=== PATIENT | male | born 1940 | race Caucasian/White ===

== ENCOUNTER → 2018-06-05 | Outpatient (CLI) | payer MEDICARE ==
[~2018-06-05] MED LIST: ASPIRIN 81M81 MG/TA2 PO; BENICAR; BENICAR 20MG TA20 MG PO; FISH OIL500 MG PO; LEVOXYL; LEVOXYL0.088 MG PO; LEVOXYL0.112 MG PO; LORTAB 5/500 501 TAB PO; NITROQUICK0.4 MG SL; NO HOME MEDICATIONS; PRILOSEC40 MG PO; ZOCOR; ZOCOR 20MG20 MG PO
== END ==
LOC: COL.RAD 06-03 09:30
DX: R13.12 Dysphagia, oropharyngeal phase (principal)

== ENCOUNTER 2018-11-03 10:27 | Day surgery (SDC) | payer MEDICARE, OTHER ==
[~2018-11-03] VITALS: Ht 165.1 cm; Wt 54.4 kg
[2018-11-03] VITALS (9 sets, daily range): BP systolic 119–146; BP diastolic 56–76; PULSE 58–77; TEMP 97.7
[2018-11-03] MEDS ORDERED: NORVASC2.5 MG PO (11:35)
[2018-11-03] MEDS ORDERED: BENICAR40 MG PO (11:35)
[2018-11-03] MEDS ORDERED: NAMENDA5 MG PO (11:36)
[2018-11-03] MEDS ORDERED: ARICEPT 5MG PO (11:36)
[2018-11-03] MEDS ORDERED: PRILOTC PO (11:37)
[2018-11-03] MEDS ORDERED: NAMENDA 10MG TA10 MG PO (11:38)
--- NOTE | 2018-11-03 15:10 | NUR ---
Patient returns to room 2 per cart and arouses to verbal stimuli. Bandaids x3 on abdomen clean and dry with warm blanket on abdomen. IV fluids infusing and siderails up x2. Spouse in room. Call light in reach. Given sips of water and allowed to rest. Denies pain or nausea.
[2018-11-03] MEDS ORDERED: NORCO 325 MG-51 TAB PO (15:17)
--- NOTE | 2018-11-03 15:25 | NUR ---
Room air sats 97%. Taking ice chips and sips of water. Spouse in room and patient states that he is sleepy. Encouraged patient to sleep.
[2018-11-03] MEDS ORDERED: MOTRIN 600600 MG/TAB (15:27)
--- NOTE | 2018-11-03 15:40 | NUR ---
Given spouse script for [employer] to be filled prior to discharge. Patient is resting and call light in reach.
--- NOTE | 2018-11-03 15:55 | NUR ---
Continues to rest with eyes closed and offers no complaints of pain or nausea.
--- NOTE | 2018-11-03 16:10 | NUR ---
Continues to rest with eyes closed when not disturbed. IV fluids infusing.
--- NOTE | 2018-11-03 16:40 | NUR ---
Resting and sipping on water. States that his abdomen is sore. Eating ice cream.
--- NOTE | 2018-11-03 16:53 | NUR ---
Medicated with Downs 5mg one tab for pain rating 4/10. Bandaids x3 dry on abdomen.
--- NOTE | 2018-11-03 17:10 | NUR ---
Tolerated ice cream and [place]. States that the discomfort is decreasing. Spouse has returned with [facility] script.
--- NOTE | 2018-11-03 17:20 | NUR ---
Patient ambulatory to the bathroom and gait is steady. Able to void and returns to room. IV discontinued and patient is dressing self.
--- NOTE | 2018-11-03 17:35 | NUR ---
Patient dismissed to home driven by spouse with dismissal instructions in hand and taken to the visitor entrance per wheelchair and assisted into vehicle by this RN.
== END 2018-11-03 17:35 | disposition home or self-care (01) ==
LOC: SDCO 10:27
DX: K40.91 Unilateral inguinal hernia, without obstruction or gangrene, recurrent (principal); K41.90 Unilateral femoral hernia, without obstruction or gangrene, not specified as recurrent; I10 Essential (primary) hypertension; K20.9 Esophagitis, unspecified; Z85.850 Personal history of malignant neoplasm of thyroid; Z92.3 Personal history of irradiation; E78.00 Pure hypercholesterolemia, unspecified; F03.90 Unspecified dementia, unspecified severity, without behavioral disturbance, psychotic disturbance, mood disturbance, and anxiety; R13.10 Dysphagia, unspecified; Z79.899 Other long term (current) drug therapy; Z79.82 Long term (current) use of aspirin; Z88.2 Allergy status to sulfonamides; Z82.49 Family history of ischemic heart disease and other diseases of the circulatory system; E89.0 Postprocedural hypothyroidism
CPT/HCPCS: C1781; J0690; J1100; J1885; J2405; J2704; J3010; J7120

== ENCOUNTER → 2019-01-22 | Outpatient (CLI) | payer MEDICARE, OTHER ==
[~2019-01-22] MED LIST changes: +ARICEPT 5MG PO; +BENICAR40 MG PO; +MOTRIN 600600 MG/TAB; +NAMENDA 10MG TA10 MG PO; +NAMENDA5 MG PO; +NORCO 325 MG-51 TAB PO; +NORVASC2.5 MG PO; +PRILOTC PO
== END ==
LOC: COL.LAB 12:15
DX: S01.01XA Laceration without foreign body of scalp, initial encounter (principal)

== ENCOUNTER 2019-12-07 10:38 | Day surgery (SDC) | payer MEDICARE, OTHER ==
[~2019-12-07] VITALS: Ht 165.1 cm; Wt 49.9 kg
[~2019-12-07 10:38] MED LIST changes: +CILOXAN 5 ML5 ML OP
[2019-12-07 11:03] VITALS: BP 186/74; PULSE 56; TEMP 97.8
[2019-12-07 11:38] LABS: ALBUMIN 4.3 gm/dL (3.5-5.0); CALCIUM 9.2 mg/dL (8.4-10.2); CREATININE, serum 0.58 (0.66-1.25)
[2019-12-07] MEDS ORDERED: NORCOELIX PO (13:13)
[2019-12-07 13:15] VITALS: BP 92/53; PULSE 49; TEMP 97
--- NOTE | 2019-12-07 13:15 | NUR ---
The patient arrived back to [place] [facility] from the operating room at this time. The patient appears very drowsy but does arouse to his name. The patient's dressing to his PEG tube appears clean, dry and intact. The patient's post operative vital signs were started at this time. The patient's is at his bedside at this time. Call light is within reach. Will continue to monitor the patient.
[2019-12-07 13:30] VITALS: BP 90/44; PULSE 46
--- NOTE | 2019-12-07 13:30 | NUR ---
The patient appears to be resting quietly on the cart with his eyes closed at this time. Respiraitons even and unlabored. Dietary and [facility] is present at the patient's bedside to speak with regaridng PEG tube use and supplies. Will continue to monitor the patient.
[2019-12-07 13:45] VITALS: BP 122/63; PULSE 48
--- NOTE | 2019-12-07 13:45 | NUR ---
The patient appears more alert at this time and was given some water to try. The patient's vital signs appear stable. Call light remains within reach. continues to be at his bedside. Will continue to monitor the patient.
[2019-12-07 14:00] VITALS: BP 145/71; PULSE 48
--- NOTE | 2019-12-07 14:00 | NUR ---
The patient appears to be tolerating the water well. PEG tube teaching was completed with the patient and his at this time. They both verbalized understanding and has no questions for the nurse at this time.
--- NOTE | 2019-12-07 14:14 | NUR ---
First Leveler received a consult for the patient due to peg tube. TERESA and Dietitian, Rachele met with the patient's , Rosa to discuss DME and Medicare.gov [employer] TESTER choices. [facility] was chosed for supplies and [facility] [facility] [facility] [employer] [facility] was chosen for HHS. Referrals faxed. Kathe from [facility] reports they can accept the patient. The patient's PCP to provide HH orders. There are no additional needs at this time.
--- NOTE | 2019-12-07 14:15 | NUR ---
The patient ambulated to the bathroom with the stand by assistance of one nurse and appeared to tolerate the activity well. The patient voided without difficulty and voices a desire to be discharged home. The nurse instructed the patient to get dressed and notify the staff when he is ready to review his discharge paperwork.
--- NOTE | 2019-12-07 14:30 | NUR ---
Discharge instructions were reviewed with the patient and his at this time. They both verbalized understanding and have no questions for the nurse at this time. The patient's IV to his right wrist was removed and a pressure dressing was applied to the site. The patient is dressed and ready to be escorted out.
--- NOTE | 2019-12-07 14:45 | NUR ---
The patient was escorted out via wheelchair to a private vehicle by CONNOR Nagy. The patient's belongings and discharge paperwork were sent with him. The patient was also sent with supplies for PEG tube including 60 ml syringes, 240 mL measuring cups and drain sponges. The patient's is present to drive him home.
== END 2019-12-07 15:39 | disposition home or self-care (01) ==
LOC: SDCO
PROVIDERS: Surgery
DX: K21.9 Gastro-esophageal reflux disease without esophagitis (principal); Z79.82 Long term (current) use of aspirin; I10 Essential (primary) hypertension; E78.00 Pure hypercholesterolemia, unspecified; E03.9 Hypothyroidism, unspecified; Z92.3 Personal history of irradiation; Z88.2 Allergy status to sulfonamides; Z87.891 Personal history of nicotine dependence; F41.9 Anxiety disorder, unspecified; G30.9 Alzheimer's disease, unspecified; F02.80 Dementia in other diseases classified elsewhere, unspecified severity, without behavioral disturbance, psychotic disturbance, mood disturbance, and anxiety; Z20.828 Contact with and (suspected) exposure to other viral communicable diseases; Z88.1 Allergy status to other antibiotic agents
CPT/HCPCS: J2405; J2704; J3010; J7120

== ENCOUNTER 2020-06-13 13:34 | Emergency (ER) | payer MEDICARE, OTHER ==
[~2020-06-13] VITALS: Ht 165.1 cm; Wt 56.8 kg
[~2020-06-13 13:34] MED LIST changes: +NORCOELIX PO
[2020-06-13 13:48] VITALS: TEMP 97.5
[2020-06-13 14:35] VITALS: BP 135/68; PULSE 66
== END 2020-06-13 14:36 | disposition home or self-care (01) ==
LOC: COL.ER 13:34
DX: K94.23 Gastrostomy malfunction (principal); Z79.82 Long term (current) use of aspirin
CPT/HCPCS: 32167

== ENCOUNTER 2021-07-27 13:22 | Outpatient (CLI) | payer MEDICARE, OTHER ==
--- NOTE | 2021-07-27 14:00 | NUR ---
TO ROOM 5 AMBULATORY ACCOMPANIED BY SPOUSE FOR G-TUBE EXCHANGE. CONSENT SIGNED. ALERT AND ORIENTED TO ROOM.
--- NOTE | 2021-07-27 14:20 | NUR ---
DR. HORTON IN THE ROOM AND G-TUBE EXCHANGE DONE. PATIENT TOLERATES THE PROCEDURE WELL.
--- NOTE | 2021-07-27 14:27 | NUR ---
PROCEDURE COMPLETED AND PATIENT MAY BE DISCHARGED WITH SAME DIET AND MEDICATIONS.
--- NOTE | 2021-07-27 14:32 | NUR ---
PATIENT ESCORTED BY SPOUSE AND DISMISSED TO HOME.
== END 2021-07-27 14:32 | disposition home or self-care (01) ==
LOC: SDCO 13:22 → EDSTATUS 13:22 → SDCO 14:32
DX: Z43.1 Encounter for attention to gastrostomy (principal); Z92.21 Personal history of antineoplastic chemotherapy; Z92.3 Personal history of irradiation; R13.10 Dysphagia, unspecified
CPT/HCPCS: 31007

== ENCOUNTER 2021-08-26 11:37 | Emergency (ER) | payer MEDICARE, OTHER ==
[~2021-08-26] VITALS: Ht 165.1 cm; Wt 57.3 kg
[2021-08-26 11:45] VITALS: BP 152/80; TEMP 98.5
[2021-08-26 12:52] VITALS: PULSE 67
== END 2021-08-26 12:54 | disposition home or self-care (01) ==
LOC: COL.ER 11:37
DX: T85.528A Displacement of other gastrointestinal prosthetic devices, implants and grafts, initial encounter (principal); Z46.59 Encounter for fitting and adjustment of other gastrointestinal appliance and device

== ENCOUNTER 2022-01-18 11:27 | Inpatient (IN) | payer MEDICARE, OTHER ==
[~2022-01-18] VITALS: Ht 165.1 cm; Wt 58.7 kg
[2022-01-18 11:57] LABS: HEMATOCRIT 41.6 % (42.0-52.0); MEAN CELL VOLUME 89 fl (80.0-100.0); MEAN CORPUSCULAR HEMOGLOBIN 30 pg (27-31); MEAN CORPUSCULAR HGB CONC 34 g/dl (33.0-37.0); MEAN PLATELET VOLUME 12.4 fl (7.4-10.4); PLATELET COUNT 136 K/mm3 (130-400); RED BLOOD COUNT 4.66 M/mm3 (4.20-5.60); REDCELL DISTRIBUTION WIDTH-CV 13.1 % (11.5-14.5)
[2022-01-18 12:10] LABS: ALBUMIN 3.8 gm/dL (3.4-4.8); BILIRUBIN,TOTAL 1.3 mg/dL (0.2-1.2); CALCIUM 8.8 mg/dL (8.4-10.2); CREATININE, serum 0.9 mg/dL (0.72-1.25); POTASSIUM 4.4 mmol/L (3.5-4.5); TOTAL PROTEIN 7.2 gm/dL (6.2-8.1)
[2022-01-18 12:20] LABS: BAND 2 % (0-10); NEUTROPHILS 91 % (42.0-75.2)
[2022-01-18 12:21] LABS: PLATELET ESTIMATE NORMAL (NORMAL)
[2022-01-18] MEDS ORDERED: SEROQUEL 2525 MG/TAB PO (12:41)
[2022-01-18 13:40] LABS: COLLECTION METHOD CLEAN CATCH
[2022-01-18 13:55] LABS: MUCOUS Present (NOT PRESENT); SQUAMOUS EPITHELIAL None Seen /hpf (0-10); URINE BACTERIA None Seen /hpf (NONE SEEN)
[2022-01-18 13:56] LABS: URINE APPEARANCE Clear (CLEAR/HAZY); URINE BLOOD Negative (NEGATIVE); URINE COLOR Amber (YELLOW); URINE GLUCOSE Negative (NEGATIVE); URINE KETONE TRACE (NEGATIVE); URINE NITRATE Negative (NEGATIVE); URINE PROTEIN(semi-quant) 1+ (NEGATIVE); URINE UROBILINOGEN 0.2 E.U/dL (0.2-1.0)
[2022-01-18 17:03] VITALS: BP 131/63; PULSE 71; TEMP 98.4
--- NOTE | 2022-01-18 18:58 | NUR ---
PT ADMITTED TO MEDICAL UNIT. ADMISSION INTAKE AND ASSESSMENT COMPLETED. MED REC UPDATED. PT DENIES ANY PAIN OR NEEDS AT THIS TIME. AT BEDSIDE. PEG TUBE IN PLACE. BED ALARMS IN PLACE. CALL LIGHT WITHIN REACH. WILL PASS ALONG REPORT TO ONCOMING RN.
--- NOTE | 2022-01-18 20:00 | NUR ---
Pt lying down in his bed. Looks very anxious to stand up and to leave the room. Pt is constantly reoriented that he is in the hospital. Pt makes constantly questions of why he is in the hospital and that he doesn't like where he is at. All medications administered per emar. Left FA with fluids running at this time. PEG tube in abdomen. Pt remains in clear liquid diet. Pt has difficulty remembering his own limitations. Call light is left within reach.
[2022-01-18 20:47] VITALS: BP 129/51; PULSE 73; TEMP 99.2
[2022-01-18 23:39] VITALS: BP 108/39; PULSE 63; TEMP 97.7
[2022-01-19] VITALS (7 sets, daily range): BP systolic 118–137; BP diastolic 49–92; PULSE 61–77; TEMP 96.5–99.1
[2022-01-19 06:24] LABS: BASO % 0.2 % (0.0-2.0); EOS # 0.1 K/mm3 (0.0-0.7); EOS % 1.8 % (0.0-4.0); GRAN # 4.4 K/mm3 (1.4-6.5); GRAN % 70.7 % (42.2-75.2); LYMPH % 16.3 % (20.0-51.0); MEAN CELL VOLUME 90 fl (80.0-100.0); MEAN CORPUSCULAR HEMOGLOBIN 30 pg (27-31); MEAN CORPUSCULAR HGB CONC 34 g/dl (33.0-37.0); MONO # 0.7 K/mm3 (0.1-0.6); MONO % 10.7 % (1.7-9.3); PLATELET COUNT 111 K/mm3 (130-400); RED BLOOD COUNT 3.94 M/mm3 (4.20-5.60); REDCELL DISTRIBUTION WIDTH-CV 13.1 % (11.5-14.5)
[2022-01-19 06:25] LABS: HEMATOCRIT 35.4 % (42.0-52.0); HEMOGLOBIN 11.9 g/dl (13.5-18.0)
[2022-01-19 06:40] LABS: CALCIUM 8.3 mg/dL (8.4-10.2); CREATININE, serum 0.67 mg/dL (0.72-1.25); POTASSIUM 3.7 mmol/L (3.5-4.5)
--- NOTE | 2022-01-19 10:35 | NUR ---
Initial visit; Patient wanted Plastics Plater to help him with the phone to call his and see what she is doing. Kyaw seems to not be in any pain, just somewhat focused elsewhere. Plastics Plater got his nurse to help with the phone as she wasn't having any luck getting an outside line. Plastics Plater wished Kyaw well and he thanked her for stopping. He declined Spiritual Care.
--- NOTE | 2022-01-19 16:33 | NUR ---
off unit to grab lunch. Unable to meet to discuss placement. [email or web address] list of SNF facilities provided. Patient's RN called stating that per Swathi their first choice would be [facility], second- [facility] and third-[facility].
[2022-01-19 18:15] LABS: GASTROCCULT NEGATIVE
[2022-01-19 18:16] LABS: pH GASTRIC CONTENTS 3
[2022-01-20] VITALS (7 sets, daily range): BP systolic 102–175; BP diastolic 43–91; PULSE 75–92; TEMP 97.5–102.6
--- NOTE | 2022-01-20 01:32 | NUR ---
THE PATIENT WAS IN BED WITH THE BED ALARM SET UPON ASSESSMENT. THE PATIENT HAD A FALL AT 1900 DURING SHIFT CHANGE. THE PATIENT DENIED INJURIES HOWEVER A CT OF HEAD AND C-SPINE WAS ORDERED. POST FALL ASSESSMENT AND EVENT REPORT COMPLETED. THE PATIENT WAS REMINDED TO CALL PRIOR TO GETTING UP HOWEVER WITH THE PTS HX OF ALZHEIMERS/DEMENTIA HE IS FORGETFUL. THE PATIENT DENIED PAIN OR OTHER DISCOMFORT. PERSONAL BELONGINGS AND CALL LIGHT WITHIN REACH. BED ALARM ON. WILL MONITOR.
[2022-01-20 06:50] LABS: BASO % 0.1 % (0.0-2.0); EOS # 0.1 K/mm3 (0.0-0.7); GRAN # 5.7 K/mm3 (1.4-6.5); GRAN % 79.8 % (42.2-75.2); HEMOGLOBIN 12.1 g/dl (13.5-18.0); LYMPH # 0.8 K/mm3 (1.2-3.4); LYMPH % 10.6 % (20.0-51.0); MEAN CELL VOLUME 90 fl (80.0-100.0); MEAN CORPUSCULAR HEMOGLOBIN 30 pg (27-31); MEAN CORPUSCULAR HGB CONC 34 g/dl (33.0-37.0); MEAN PLATELET VOLUME 12.5 fl (7.4-10.4); MONO # 0.6 K/mm3 (0.1-0.6); MONO % 8.2 % (1.7-9.3); PLATELET COUNT 116 K/mm3 (130-400); RED BLOOD COUNT 3.98 M/mm3 (4.20-5.60); REDCELL DISTRIBUTION WIDTH-CV 13.1 % (11.5-14.5)
[2022-01-20 06:58] LABS: HEMATOCRIT 35.9 % (42.0-52.0)
[2022-01-20 07:00] LABS: CALCIUM 8.4 mg/dL (8.4-10.2); CREATININE, serum 0.68 mg/dL (0.72-1.25); POTASSIUM 4.1 mmol/L (3.5-4.5)
--- NOTE | 2022-01-20 07:30 | NUR ---
Patient resting in bed, RT at the bedside providing a breathing treatment. Alert, but confused. VSS. IV CDI. Peg tube intact. Denies pain and discomfort. Door left open. Call light within reach. Bed alarm on
--- NOTE | 2022-01-20 12:14 | NUR ---
Teresa met with Swathi, spouse to complete intake (pt has Alzheimers). [phone]. Pt is independent on all ADLs and but does need help with PEG tube. Pt DPOA is Swathi and his daughter Lady @ [phone]. PCP [address] Dr. Beckie Hidalgo and gets medications from [facility]. No other needs at this time. TERESA to await further recommendations. DC: SNF VS LTC: referral faxed out.
--- NOTE | 2022-01-20 17:42 | NUR ---
Patient had an uneventful day, rested in bed most of the shift with visiting throughout the day. Impulsive and sets off the bed alarm to get up to use the restroom. Has had 2 loose BM's. Tolerating Peg tube feeds. Alert, but confused. Denies pain and discomfort. VSS. IV CDI, fluids infusing. Call light within reach. Bed alarm on and door left open
[2022-01-20 23:33] LABS: ARTERIAL BLD GAS O2 SATURATION 95.3 % (92-100); ARTERIAL BLD GAS TCO2 CT 22.3; ARTERIAL BLOOD GAS BASE EXCESS -0.2 (-2-2); ARTERIAL BLOOD GAS HCO3 21.5 meq/L (22-26); ARTERIAL BLOOD GAS PCO2 27.2 mmHg (35-45); ARTERIAL BLOOD GAS PO2 66.7 mmHg (80-100); ARTERIAL BLOOD GAS pH 7.52 (7.35-7.45)
[2022-01-21 03:19] LABS: COLLECTION METHOD CLEAN CATCH
[2022-01-21 03:40] LABS: MUCOUS Present (NOT PRESENT); SQUAMOUS EPITHELIAL None Seen /hpf (0-10); URINE BACTERIA None Seen /hpf (NONE SEEN); URINE RBC 0-2 /hpf (0-2); URINE WBC 0-2 /hpf (0-2)
[2022-01-21 03:42] LABS: URINE APPEARANCE Clear (CLEAR/HAZY); URINE BLOOD Negative (NEGATIVE); URINE COLOR Yellow (YELLOW); URINE GLUCOSE Negative (NEGATIVE); URINE KETONE TRACE (NEGATIVE); URINE NITRATE Negative (NEGATIVE); URINE PROTEIN(semi-quant) 1+ (NEGATIVE); URINE UROBILINOGEN 0.2 E.U/dL (0.2-1.0)
[2022-01-21 04:30] VITALS: BP 100/41; PULSE 69; TEMP 99.9
--- NOTE | 2022-01-21 05:33 | NUR ---
81 yo male admitted for further care and management of sepsis with continuing concerns for pneumonia. ht 165.1 cm wt 59.7 kg SCr 0.68 with estimated CrCl ~60 ml/min half life 10.3 hours Plan: Will give an initial loading dose of vancomycin 1250 mg x1 (20.9 mg/kg); followed by a maintenance regimen of vancomycin 1000 mg q12h to target a goal trough of 15-20 mcg/ml. Will follow patient's renal function, micro data, and vancomycin levels as indicated to assess for any necessary changes to regimen. Thank you for this dosing consult.
--- NOTE | 2022-01-21 05:41 | NUR ---
23:06 RAMÓN CASTAÑEDA CONTACTED REGARDING THE PATIENTS COUGH, YELLOW SPUTUM THAT SOMEWHAT LOOKED LIKE TUBE FEED THAT WAS ALSO BLOOD TINGED, FEVER, DROWSINESS AND DIARRHEA. NEW ORDERS RECEIVED. WILL MONITOR.
[2022-01-21 06:48] LABS: BILIRUBIN,TOTAL 1.7 mg/dL (0.2-1.2); CREATININE, serum 0.77 mg/dL (0.72-1.25); MAGNESIUM 1.9 mg/dL (1.6-2.6); PHOSPHOROUS 3.1 mg/dL (2.3-4.7)
[2022-01-21 07:02] LABS: CALCIUM 8.3 mg/dL (8.4-10.2)
[2022-01-21 07:10] VITALS: BP 100/46; PULSE 65; TEMP 97.7
--- NOTE | 2022-01-21 07:32 | NUR ---
Patient sleeping in bed, easily awakened with verbal command. A&Ox4. VSS. IV CDI. Denies pain and discomfort. Peg tube intact, clamped. Nurse provided a warm blanket. No further needs expressed. Call light within reach. Bed alarm on and door open
--- NOTE | 2022-01-21 07:36 | NUR ---
RALPH QUINN SVN INITIATED. PT CONFUSED AND BECAME AGITATED, REFUSED SVN AFTER A FEW MINUTES OF THERAPY. TREATMENT STOPPED A RESULT
[2022-01-21 11:48] VITALS: BP 101/53; PULSE 64; TEMP 98.9
[2022-01-21 15:41] VITALS: BP 126/60; PULSE 65; TEMP 98.7
--- NOTE | 2022-01-21 16:22 | NUR ---
Clinical updates faxed to [facility], [facility] and [facility]. MOORE spoke with Louie at [facility] who states that they would need to know dates of when the patient got his covid vaccine and that they would not be able to take until Fri/ of this week.
--- NOTE | 2022-01-21 18:03 | NUR ---
Patient currently having increased confusion, refused WBG check. Alert, but confused. IV CDI, fluids infusing. Patient ttolerating Peg tube feeds. Patient sat up in the recliner for part of the shift while the was at the bedside and tolerated well. Patient has been impulsive and setting off the bed alarm. Nursing staff orienting the patient as needed. Denies pain and discomfort. Call light within reach. Bed alarm on and door left open
--- NOTE | 2022-01-21 20:00 | NUR ---
PATIENT HAD APPROXIMATELY 125 RESIDUAL IN HIS STOMACHE, DECIDED TO HOLD 2000 FEED.
[2022-01-21 20:21] VITALS: BP 143/69; PULSE 86; TEMP 98.9
[2022-01-21 20:41] LABS: CLOSTRIDIUM DIFF A/B NEG; CLOSTRIDIUM DIFF A/B INTERP No C.diff present
[2022-01-22 01:04] VITALS: BP 135/56; PULSE 81; TEMP 100
[2022-01-22 04:58] VITALS: BP 122/88; PULSE 83; TEMP 98
[2022-01-22 06:42] LABS: BASO % 0.5 % (0.0-2.0); EOS # 0.1 K/mm3 (0.0-0.7); EOS % 1.6 % (0.0-4.0); GRAN # 5.9 K/mm3 (1.4-6.5); GRAN % 76.2 % (42.2-75.2); LYMPH # 0.7 K/mm3 (1.2-3.4); LYMPH % 9.4 % (20.0-51.0); MEAN CELL VOLUME 90 fl (80.0-100.0); MEAN CORPUSCULAR HEMOGLOBIN 30 pg (27-31); MEAN CORPUSCULAR HGB CONC 33 g/dl (33.0-37.0); MEAN PLATELET VOLUME 12.6 fl (7.4-10.4); MONO # 0.9 K/mm3 (0.1-0.6); MONO % 11.9 % (1.7-9.3); PLATELET COUNT 120 K/mm3 (130-400); RED BLOOD COUNT 4.03 M/mm3 (4.20-5.60); REDCELL DISTRIBUTION WIDTH-CV 13.2 % (11.5-14.5)
[2022-01-22 06:46] LABS: HEMATOCRIT 36.3 % (42.0-52.0)
[2022-01-22 06:54] LABS: CALCIUM 8.6 mg/dL (8.4-10.2); CREATININE, serum 1.66 mg/dL (0.72-1.25)
[2022-01-22 07:37] VITALS: BP 163/71; PULSE 77; TEMP 98.3
--- NOTE | 2022-01-22 15:28 | NUR ---
Retort Operator faxed clinical updates. [facility] is reviewing referral and advised they plan to screen patient in person soon. TERESA advised patient will be ready for discharge tomorrow. TERESA spoke with Anselmo at [facility] who advised they could accept for SNF, but if patient needs LTC they have no beds at this time for a male. Louie at [facility] needs an application completed if patient wants to move forward with their facility. TERESA updated patient's at bedside who confirmed [facility] would be their first preference.
[2022-01-22 16:12] VITALS: BP 146/59; PULSE 68; TEMP 98.1
--- NOTE | 2022-01-22 18:28 | NUR ---
PATIENT ALERT AND ORIENTED X4. VSS. PEG TUBE CLAMPED. RESIDUAL CHECKED, JEVITY GIVEN X2. 1700 JWVITY HELD DUE TO RESIDUAL OF 264. PATIENT DENIES PAIN AT THIS TIME. NO TEMPS THIS SHIFT. PATIENT RESTING IN BED WITH CALL NIGHT NEAR.
--- NOTE | 2022-01-22 19:00 | NUR ---
PT IS SLEEPING AT THIS TIME. WILL RETURN FOR ASSESSMENT AND NIGHTLY MEDICATIONS/TUBE FEED.
[2022-01-22 21:06] VITALS: BP 109/78; PULSE 76; TEMP 98.3
[2022-01-23 00:30] VITALS: BP 133/61; PULSE 65; TEMP 97.5
[2022-01-23 04:35] VITALS: BP 134/53; PULSE 65; TEMP 97.6
--- NOTE | 2022-01-23 07:00 | NUR ---
PT RESTING IN BED. PT HAS NS RUNNING. PT IS CONFUSED BUT AROUSES TO VOICE. PT HAS CALL LIGHT WITHIN REACH AND INSTRUCTED TO CALL WITH ALL NEEDS. BEDALARM ACTIVE.
[2022-01-23] MEDS ORDERED: AMOXICILLIN 8751 TAB PO (08:33)
[2022-01-23] MEDS ORDERED: MUCINEX1200 MG PO (08:55)
[2022-01-23 09:00] VITALS: BP 174/81; PULSE 73; TEMP 97.6
[2022-01-23 10:08] LABS: CALCIUM 8.6 mg/dL (8.4-10.2); CREATININE, serum 1.96 mg/dL (0.72-1.25); POTASSIUM 3.7 mmol/L (3.5-4.5)
[2022-01-23 12:09] VITALS: BP 168/67; PULSE 71; TEMP 97.8
--- NOTE | 2022-01-23 13:44 | NUR ---
NOTIFIED OF STOOL CULTURE RESULTS.
--- NOTE | 2022-01-23 14:36 | NUR ---
CLARIFIED WITH REGARDING CDIFF RESULTS. PT HAS HAD ONE FORMED BM TODAY. STATES PT IS NOT POSITIVE FOR CDIFF.
--- NOTE | 2022-01-23 15:23 | NUR ---
Optical Manager spoke with Juan Pablo at [facility] who advised they cannot meet patient's needs at this time. TERESA then spoke with Anselmo at [facility] who advised they were able to accept. TERESA faxed discharge orders. Anselmo contacted [facility] and advised that since patient's orders included suctioning every 2 hours, they cannot accept as they cannot perform this care. [facility] would like to see how patient does overnight and may reconsider tomorrow. TERESA updated patient's , Swathi Cunningham".
[2022-01-23 16:34] VITALS: BP 158/64; PULSE 67; TEMP 98.8
--- NOTE | 2022-01-23 19:00 | NUR ---
THE PATIENT IS LAYING IN BED AT THIS TIME SLEEPING. ASSESSMENT COMPLETE. THE PATIENT AWAKENS TO TOUCH AND FALLS BACK ASLEEP.
[2022-01-23 20:48] VITALS: BP 117/77; PULSE 74; TEMP 98.3
[2022-01-24 00:20] VITALS: BP 149/62; PULSE 66; TEMP 98.6
[2022-01-24 03:35] VITALS: BP 154/65; PULSE 64; TEMP 98.5
--- NOTE | 2022-01-24 08:20 | NUR ---
Per report, no suctioning required overnight. Oral care as needed. Patient currently resting in bed. No s/s of pain or discomfort at this time. Call light in reach. Fall precautions in place.
[2022-01-24 08:25] LABS: CALCIUM 8.6 mg/dL (8.4-10.2); CREATININE, serum 1.79 mg/dL (0.72-1.25); POTASSIUM 3.4 mmol/L (3.5-4.5)
[2022-01-24] MEDS ORDERED: AMOXICILLIN/CLA1 TA1 PO ×2 (10:01)
--- NOTE | 2022-01-24 10:04 | NUR ---
PT ALERT WITH INTERMITTENT CONFUSION. VITALS STABLE ON ROOM AIR. PT DENIES PAIN. PT REPOSITIONED FOR COMFORT. PT RIPPED IV OUT, PHYSICIAN NOTIFIED. CALL LIGHT WITHIN REACH. NO FURTHER NEEDS IDENTIFIED.
[2022-01-24] MEDS ORDERED: LOPRESSOR 225 MG/TAB PO (10:06)
[2022-01-24 11:33] VITALS: BP 159/92; PULSE 66; TEMP 98.2
--- NOTE | 2022-01-24 13:56 | NUR ---
Primary nurse was assisted with [phone] patient care by [employer] student Dianne Langley and [employer] instructor Pushpa MATTHEWS, RN.
[2022-01-24 16:00] VITALS: BP 156/72; PULSE 65
--- NOTE | 2022-01-24 16:05 | NUR ---
Supervisor [employer]ory Products faxed clinical updates to [facility] and they cannot meet patient's needs. They referenced suctioning, which SW advised has not been needed today or overnight. Anselmo at [facility] also advised they can't do a bolus every three hours for tube feeds. Anselmo referenced patient's aspiration risk and readmission risk. TERESA collaborated with [facility] who advised possibly a change to overnight feed would help. TERESA spoke with Hospitalist who does not feel patient is a LTACH candidate and will speak with Franklin tomorrow.
--- NOTE | 2022-01-24 16:16 | NUR ---
PT 1400 FEEDING HELD PER WIFES REQUEST THAT PATIENT IS STILL FULL. PHYSICIAN AWARE.
--- NOTE | 2022-01-24 18:20 | NUR ---
PT ALERT WITH INTERMMITENT CONFUSION. PT DENIES PAIN. PT CALL LIGHT WITHIN REACH AND BED ALARM ON. NO FURTHER NEEDS IDENTIFIED.
[2022-01-24 19:59] VITALS: BP 185/80; PULSE 66; TEMP 98.8
[2022-01-24 23:21] VITALS: BP 155/82; PULSE 68; TEMP 98
[2022-01-25] VITALS (7 sets, daily range): BP systolic 160–188; BP diastolic 71–100; PULSE 59–68; TEMP 97.5–98.3
--- NOTE | 2022-01-25 00:04 | NUR ---
1957 - PRESENTED TO ROOM. PERFORMED ASSESSMENT. PT BREATHSOUNDS CLEAR/DIMIN THROUGHOUT. SATS ARE 98% ON ROOM. PT REFUSED BREATHING TREATMENT AND STATED THAT HE WOULD CALL IF HE WANTED ONE.
--- NOTE | 2022-01-25 03:49 | NUR ---
THE SHIFT ASSESSMENT WAS COMPLETED. THE PATIENT WAS ALERT TO SELF BUT NOT SITUATION. THE PATIENT DENIED NEEDS AT THIS TIME. THE PATIENT WAS CONFUSED ON WHERE HE WAS AND HE WAS RE-ORIENTED TO PLACE AND SITUATION. THE BED ALARM IS ON. THE BED IS IN THE LOWEST POSITION AND PERSONAL BELONGINGS ARE WITHIN REACH.
--- NOTE | 2022-01-25 06:24 | NUR ---
PATIENTS BLOOD GLUCOSE AT 05:41 WAS 66. THE PATIENT WAS ABLE TO DRINK AN APPLE JUICE. RE-CHECK ON BLOOD GLUCOSE AT 06:17 VALUE 91. WILL MONITOR.
--- NOTE | 2022-01-25 07:55 | NUR ---
Dr. Hu contacted regarding Tele orders. Telephone order to DC tele recieved and subsequent orders placed. Telephone order to DC IV protonix and change to oral protonix recieved and entered.
--- NOTE | 2022-01-25 10:41 | NUR ---
PT ALERT WITH INTERMMITENT CONFUSION. PT DENIES PAIN. PT SITTING UP IN BED. CALL LIGHT WITHIN REACH. BED ALARM ON. NO FURTHER NEEDS IDENTIFIED.
--- NOTE | 2022-01-25 10:55 | NUR ---
[facility] student, Tierra Johnson, assisting primary nurse with patient today from [phone].
--- NOTE | 2022-01-25 13:43 | NUR ---
Primary nurse was assisted with [phone] patient care by [employer] student Tierra Johnson and [employer] instructor Pushpa MATTHEWS RN.
--- NOTE | 2022-01-25 16:00 | NUR ---
Fleet Service Manager faxed referrals to [facility], [facility], and [facility]. [facility] does not have a bed available. Susy is actively reviewing referral. Louie at [facility] advised they are interested in patient but need thier application completed by family. TERESA contacted patient's with an update and provided application. Rosa advised she will complete application over weekend and return it to [facility].
--- NOTE | 2022-01-25 17:57 | NUR ---
PT ALERT WITH INTERMITTENT CONFUSION. PT DENIES PAIN. PT SITTING IN BED WATCHING TV. CALL LIGHT WITHIN REACH. BED ALARM ON. NO FURTHER NEEDS IDENTIFIED.
--- NOTE | 2022-01-25 20:00 | NUR ---
Pt lying down in bed. Alert but confused. Shift assessment completed. Pt is continuosly asking for his . Pt gets reoriented regarding the place where he is at. No IV and no Telemetry box placed. PEG tube place in epigastric site. Fall risk precautions remain in place. Call light within reach.
--- NOTE | 2022-01-25 21:00 | NUR ---
All medication administered per emar. Continuos feeding placed per orders at 85ml/hr and 30ml of water flushing Q4h. Checked for placement. HOB at 30 degrees. Call light within reach.
[2022-01-26 00:23] VITALS: BP 144/60; PULSE 62; TEMP 98.6
[2022-01-26 04:21] VITALS: BP 165/63; PULSE 64; TEMP 97.9
[2022-01-26 06:53] LABS: BASO % 0.4 % (0.0-2.0); EOS # 0.3 K/mm3 (0.0-0.7); EOS % 4.5 % (0.0-4.0); GRAN # 4.6 K/mm3 (1.4-6.5); GRAN % 68.8 % (42.2-75.2); HEMOGLOBIN 11.3 g/dl (13.5-18.0); LYMPH % 14.7 % (20.0-51.0); MEAN CELL VOLUME 93 fl (80.0-100.0); MEAN CORPUSCULAR HEMOGLOBIN 30 pg (27-31); MEAN CORPUSCULAR HGB CONC 32 g/dl (33.0-37.0); MEAN PLATELET VOLUME 11.7 fl (7.4-10.4); MONO # 0.7 K/mm3 (0.1-0.6); PLATELET COUNT 231 K/mm3 (130-400); RED BLOOD COUNT 3.74 M/mm3 (4.20-5.60); REDCELL DISTRIBUTION WIDTH-CV 13.2 % (11.5-14.5)
[2022-01-26 06:56] LABS: HEMATOCRIT 34.9 % (42.0-52.0)
[2022-01-26 07:13] LABS: ALBUMIN 2.8 gm/dL (3.4-4.8); CALCIUM 8.7 mg/dL (8.4-10.2); CREATININE, serum 1.46 mg/dL (0.72-1.25); PHOSPHOROUS 3.4 mg/dL (2.3-4.7); POTASSIUM 3.8 mmol/L (3.5-4.5)
[2022-01-26 08:07] VITALS: BP 154/72; PULSE 68; TEMP 98.2
[2022-01-26 11:14] VITALS: BP 167/65; PULSE 60; TEMP 97.8
[2022-01-26 15:27] VITALS: BP 192/82; PULSE 94; TEMP 98.4
[2022-01-26 20:00] VITALS: BP 136/75; PULSE 66; TEMP 98.5
--- NOTE | 2022-01-26 20:00 | NUR ---
Shift assessment completed. Alert and confused. VSS Pt started on overnight continuos feeding through PEG tube. All medication administrated per emar. Pt stated feeling nauseous. Provider notified to obtain order for oral antiemetic. Checked for tube feeding placement. Head of the bed is at 30 degrees. Still no IV site. Ambulated a couple times to the bathroom. Call light is within reach.
[2022-01-27 00:16] VITALS: BP 120/55; PULSE 59; TEMP 97.6
[2022-01-27 05:07] VITALS: BP 119/55; PULSE 59; TEMP 97.7
--- NOTE | 2022-01-27 05:07 | NUR ---
Uneventful night. Tele on per orders. Pt needs to be NPO tonight at midnight for stress test on Friday. No discomfort or pain expressed at this time. Call light is within reach.
[2022-01-27 06:53] LABS: BASO % 0.5 % (0.0-2.0); EOS # 0.3 K/mm3 (0.0-0.7); EOS % 3.9 % (0.0-4.0); GRAN # 6.3 K/mm3 (1.4-6.5); GRAN % 73.8 % (42.2-75.2); HEMOGLOBIN 11.2 g/dl (13.5-18.0); LYMPH % 11.5 % (20.0-51.0); MEAN CELL VOLUME 90 fl (80.0-100.0); MEAN CORPUSCULAR HEMOGLOBIN 30 pg (27-31); MEAN CORPUSCULAR HGB CONC 33 g/dl (33.0-37.0); MONO # 0.8 K/mm3 (0.1-0.6); MONO % 9.6 % (1.7-9.3); PLATELET COUNT 250 K/mm3 (130-400); RED BLOOD COUNT 3.73 M/mm3 (4.20-5.60); REDCELL DISTRIBUTION WIDTH-CV 13.1 % (11.5-14.5)
[2022-01-27 07:00] LABS: HEMATOCRIT 33.6 % (42.0-52.0)
[2022-01-27 07:10] LABS: ALBUMIN 2.8 gm/dL (3.4-4.8); CALCIUM 8.8 mg/dL (8.4-10.2); CREATININE, serum 1.5 mg/dL (0.72-1.25); PHOSPHOROUS 3.8 mg/dL (2.3-4.7); POTASSIUM 3.6 mmol/L (3.5-4.5)
[2022-01-27 07:39] VITALS: BP 117/58; PULSE 67; TEMP 98
[2022-01-27 11:26] VITALS: BP 132/64; PULSE 59; TEMP 97.5
[2022-01-27 15:05] VITALS: BP 148/68; PULSE 68; TEMP 97.4
--- NOTE | 2022-01-27 18:12 | NUR ---
Pt hada fair day, due meds given via j tube, all well tolarated, no residual recorded from the feeding tube,pt on tele normal sinus .NPO FOR RIRI SCAN tomorrow. pt denies complaints of pain.
[2022-01-27 19:42] VITALS: BP 141/63; PULSE 64; TEMP 97.6
--- NOTE | 2022-01-27 20:00 | NUR ---
Shift assessment completed. Pt expresing feeling ready to sleep, and asking about his . Alert and confused. VSS. Tele on. PEG tube in epigastric site. Continuos feeding running at this time. All medications administered. No IV site. Pt will be NPO after midnight for stress test on Friday. Pt needs constant reminders that he is in the hospital. Fall risk remain in place. Call light is within reach.
[2022-01-28] VITALS (12 sets, daily range): BP systolic 114–168; BP diastolic 48–80; PULSE 58–82; TEMP 97.3–98.5
[2022-01-28 06:32] LABS: BASO % 0.3 % (0.0-2.0); EOS # 0.4 K/mm3 (0.0-0.7); EOS % 4.4 % (0.0-4.0); GRAN # 7.2 K/mm3 (1.4-6.5); GRAN % 73.6 % (42.2-75.2); HEMOGLOBIN 11.6 g/dl (13.5-18.0); LYMPH # 1.2 K/mm3 (1.2-3.4); LYMPH % 12.6 % (20.0-51.0); MEAN CELL VOLUME 93 fl (80.0-100.0); MEAN CORPUSCULAR HEMOGLOBIN 30 pg (27-31); MEAN CORPUSCULAR HGB CONC 32 g/dl (33.0-37.0); MEAN PLATELET VOLUME 11.6 fl (7.4-10.4); MONO # 0.8 K/mm3 (0.1-0.6); MONO % 8.5 % (1.7-9.3); PLATELET COUNT 256 K/mm3 (130-400); RED BLOOD COUNT 3.86 M/mm3 (4.20-5.60); REDCELL DISTRIBUTION WIDTH-CV 13.2 % (11.5-14.5)
[2022-01-28 06:35] LABS: HEMATOCRIT 35.9 % (42.0-52.0)
[2022-01-28 06:59] LABS: ALBUMIN 3.1 gm/dL (3.4-4.8); BILIRUBIN,TOTAL 0.7 mg/dL (0.2-1.2); CREATININE, serum 1.43 mg/dL (0.72-1.25); MAGNESIUM 2.2 mg/dL (1.6-2.6); PHOSPHOROUS 3.3 mg/dL (2.3-4.7); POTASSIUM 3.8 mmol/L (3.5-4.5); TOTAL PROTEIN 6.8 gm/dL (6.2-8.1)
--- NOTE | 2022-01-28 07:27 | NUR ---
Continuos feeding stopped at midnight. Pt has a LFA INT CDI. Morning medications administered. pt got frustrated when going in the bathroom due to having someone assisting him to go to the bathroom. He started hitting the wall when got reminded that the bathroom door needed to remain open for someone to assist him. Report given to day shift RN. Call light is [employer].
--- NOTE | 2022-01-28 11:15 | NUR ---
NEPHROLOGY ROUNDING, SEE ORDERS.
--- NOTE | 2022-01-28 15:04 | NUR ---
[facility] declined referral stating they cannot meet needs. SW contacted [facility] and [place] and faxed updates. SW advised tube feeds were changed to continuous overnight. Both facilities will review updates to determine if they can meet needs.
--- NOTE | 2022-01-28 18:15 | NUR ---
FLUSHED PEG TUBE WITH 100CC PER ORDERS. PATIENT GIVEN PRN TYLENOL CRUSHED IN PEG TUBE FOR MILD GASTON. PATIENT RESTING WITH HEAT PACK ON NECK. NO NEEDS.
[2022-01-29 04:16] VITALS: BP 136/69; PULSE 58; TEMP 97.5
[2022-01-29 06:58] LABS: BASO % 0.4 % (0.0-2.0); EOS # 0.4 K/mm3 (0.0-0.7); EOS % 4.6 % (0.0-4.0); GRAN % 73.3 % (42.2-75.2); HEMATOCRIT 37.8 % (42.0-52.0); HEMOGLOBIN 11.8 g/dl (13.5-18.0); LYMPH # 1.1 K/mm3 (1.2-3.4); LYMPH % 13.1 % (20.0-51.0); MEAN CELL VOLUME 95 fl (80.0-100.0); MEAN CORPUSCULAR HEMOGLOBIN 30 pg (27-31); MEAN CORPUSCULAR HGB CONC 31 g/dl (33.0-37.0); MEAN PLATELET VOLUME 11.7 fl (7.4-10.4); MONO # 0.6 K/mm3 (0.1-0.6); MONO % 7.6 % (1.7-9.3); PLATELET COUNT 281 K/mm3 (130-400); RED BLOOD COUNT 3.97 M/mm3 (4.20-5.60); REDCELL DISTRIBUTION WIDTH-CV 13.3 % (11.5-14.5)
[2022-01-29 07:18] VITALS: BP 146/65; PULSE 63; TEMP 97.5
[2022-01-29 07:21] LABS: CALCIUM 9.1 mg/dL (8.4-10.2); CREATININE, serum 1.42 mg/dL (0.72-1.25); PHOSPHOROUS 3.1 mg/dL (2.3-4.7); POTASSIUM 3.8 mmol/L (3.5-4.5)
--- NOTE | 2022-01-29 08:00 | NUR ---
Pt ambulating from bathroom to bed at this time. Shift assessment completed. Morning medications administered via PEG tube per eMAR. Redness and minimal drainage noted from PEG tube insertion site; intact. Residual of 175cc obtained. Jevity infusing @85mL/hr per orders. IV in L forearm intact; no edema or redness. Telemetry on. Expiratory wheezing heard during auscultation; O2 sat at 99%. No complaints of shortness of breath at this time. Pt denies having any pain at this time. Fall precautions remain in place. Call light within reach.
[2022-01-29 11:54] VITALS: BP 142/65; PULSE 59; TEMP 97.8
[2022-01-29 16:07] VITALS: BP 170/80; PULSE 67; TEMP 97.6
--- NOTE | 2022-01-29 16:09 | NUR ---
Knowledge Management Advisor collaborated with CONNOR Coreas at [place] who advised they met with the family yesterday and will screen patient in person this afternoon. Following screen, Lyudmila left [facility] a message stating the will accept patient. [facility] cannot admit until as they have to make room adjustments. TERESA updated Hospitalist who is in agreement with this plan. [facility] will also need a CARE assessment. TERESA updated patient's , Rosa on the above and she is relieved [facility] can accept.
--- NOTE | 2022-01-29 16:30 | NUR ---
BP 170/80; PRN Hyrdalazine administered per eMAR. Will reassess BP in an hour.
--- NOTE | 2022-01-29 19:00 | NUR ---
PT IS LAYING IN BED AT THIS TIME. DENIES NEEDS, ASKED WHERE HIS IS AT. REDIRECTED PATIENT BACK TO BED, AND WILL RETURN SHORTLY.
[2022-01-29 20:21] VITALS: BP 175/82; PULSE 66; TEMP 98.5
--- NOTE | 2022-01-29 20:43 | NUR ---
ATTEMPTED TO COLLECT URINE FOR LABS OREDERED BY DR. MORGAN' SERVICE, HOWEVER THE PATIENT REFUSES TO URINATE IN A CUP OR IN A URINAL AND WILL NOT ALLOW NURSING STAFF TO ASSIST IN COLLECTING IT.
[2022-01-30 00:14] VITALS: BP 142/68; PULSE 63; TEMP 98.3
[2022-01-30 04:14] VITALS: BP 166/78; PULSE 59; TEMP 97.7
[2022-01-30 06:29] LABS: BASO % 0.5 % (0.0-2.0); EOS # 0.3 K/mm3 (0.0-0.7); EOS % 4.2 % (0.0-4.0); GRAN # 5.7 K/mm3 (1.4-6.5); HEMATOCRIT 38.5 % (42.0-52.0); HEMOGLOBIN 12.2 g/dl (13.5-18.0); LYMPH # 1.2 K/mm3 (1.2-3.4); LYMPH % 14.9 % (20.0-51.0); MEAN CELL VOLUME 94 fl (80.0-100.0); MEAN CORPUSCULAR HEMOGLOBIN 30 pg (27-31); MEAN CORPUSCULAR HGB CONC 32 g/dl (33.0-37.0); MEAN PLATELET VOLUME 12.2 fl (7.4-10.4); MONO # 0.8 K/mm3 (0.1-0.6); MONO % 9.9 % (1.7-9.3); PLATELET COUNT 287 K/mm3 (130-400); RED BLOOD COUNT 4.09 M/mm3 (4.20-5.60); REDCELL DISTRIBUTION WIDTH-CV 13.3 % (11.5-14.5)
[2022-01-30 06:48] LABS: ALBUMIN 3.1 gm/dL (3.4-4.8); CALCIUM 9.1 mg/dL (8.4-10.2); CREATININE, serum 1.34 mg/dL (0.72-1.25); PHOSPHOROUS 3.1 mg/dL (2.3-4.7); POTASSIUM 3.7 mmol/L (3.5-4.5)
--- NOTE | 2022-01-30 07:25 | NUR ---
PT HAD EVENTFUL NIGHT. HE DID NOT SLEEP VERY WELL AT ALL, CALLED OUT FOR [facility] THROUGHOUT THE NIGHT. DID GET UP OUT OF BED FREQUENTLY. PT NOT AGITATED. CONTINUOUS TUBE FEED RAN THROUGHOUT THE NIGHT. NO OTHER CONCERNS AT THIS TIME.
[2022-01-30 07:53] VITALS: BP 173/75; PULSE 66; TEMP 97.7
--- NOTE | 2022-01-30 08:00 | NUR ---
Patient is resting in bed, alert but partially oriented, getting his tubing feeding per orders. Telemetry in place, NSR. Assessment completed, no other needs at this time. Call light within reach, bed alarm on.
[2022-01-30 12:00] VITALS: BP 159/73; PULSE 61
--- NOTE | 2022-01-30 14:52 | NUR ---
Collection Clerk faxed a facesheet and nutrition order to [facility] per their request. SW completed CARE assessment for patient and placed copy in patient's chart. [facility] Plan: [facility] tomorrow
--- NOTE | 2022-01-30 15:34 | NUR ---
Patient has been standing up to go to the restroom several times. Mervin LEE. This time when he was trying to stand up while Humaira and another nurse where trying to help him his PEG tube pop out. Right now patient is lying in bedwith some gauze covering the access. Called placed to [facility], awaiting for orders.
[2022-01-30 16:15] VITALS: BP 173/89; PULSE 66; TEMP 97.9
--- NOTE | 2022-01-30 16:20 | NUR ---
Dr. Casillas came to pt room and replaced the PEG tube. Area was clenaned and some gauze placed with tape holding tubing. Dr Casillas states it is good to continue the PEG feedings.
--- NOTE | 2022-01-30 19:06 | NUR ---
Patient is resting right now. He has been getting out of bed constantly. He walked in the puckett with the PCT. Report will be given to night RN.
[2022-01-30 21:05] VITALS: BP 185/87; PULSE 64; TEMP 99.3
[2022-01-31 00:08] VITALS: BP 149/74; PULSE 62; TEMP 98.2
--- NOTE | 2022-01-31 00:22 | NUR ---
PATIENT IS GETTING IN AND OUT OF BED STATING HIS TEETH HAVE YUN IN THEM. PCT QUINTEN ASSISTED PATIENT WITH BRUSHING TEEHT. PATIENT AGAIN BEGAN GETTING IN AND OUT OF BED STATING "I HAVE YUN IN MY MOUTH?" AND PT FELT HE MUST GET UP TO SINK AND ADDRESS. THIS NURSE ASSISTED PT TO SINK TO BRUSH TEETH, THEN USING THE RESTROOM AND RETURNING TO BED. PATIENT TURNED TO RIGHT SIDE, READJUSTED COVERS AND PILLOWS AND STATED HE WAS COMFORTABLE. PATIENT HAS CALL LIGHT WITHIN REACH.
--- NOTE | 2022-01-31 05:14 | NUR ---
PATIENT HAD RESTLESS NIGHT, REFUSED HIS JEVITY WHILE USING EXPLITIVES AND SWINGING AT THIS NURSE. PATIENT STATED HIS MOUTH FELT LIKE YUN X 5, WHERE PATIENT WOULD NOT STAY IN BED AND WOULD STAND AT THE SINK X 20 MINUTES EACH TIME, BRUSHING TEETH, RINSING MOUTH AND TRYING TO COUGH UP PHLEGM. PATIENT FELL ASLEEP APPROXIMATELY AT 0400. CALL LIGHT IS WITHIN PATIENT REACH.
[2022-01-31 05:47] VITALS: BP 157/87; PULSE 63; TEMP 97.8
--- NOTE | 2022-01-31 06:08 | NUR ---
PATIENT ALLOWED THIS NURSE TO BEGIN HIS JEVITY AT THIS TIME. PATIENT ATTEMPTED TO PULL ON TUBING, BUT NURSE REROUTED TO REMAIN OUT OF PATIENT REACH. CALL LIGHT REMAINS IN REACH. PATIENT RESTING IN BED AWAKE AT THIS TIME.
[2022-01-31 07:49] VITALS: BP 145/71; PULSE 68; TEMP 97.9
[2022-01-31 08:40] VITALS: BP 138/79; PULSE 71; TEMP 97.1
[2022-01-31 09:07] LABS: CALCIUM 9.4 mg/dL (8.4-10.2); CREATININE, serum 1.3 mg/dL (0.72-1.25); POTASSIUM 3.9 mmol/L (3.5-4.5)
--- NOTE | 2022-01-31 10:43 | NUR ---
Patient is ready for discharge today. TERESA faxed discharge orders and nutrition orders to [facility]. TERESA also facilitated conversation between Magdiel RN and Dietitian, Rachele. TERESA presented IM form to patient's , Rosa who verbalized understanding and provided signature. TERESA placed form in chart and provided copy to patient's . Transport time set for 1130 and provided to patient's who is at bedside. Discharge Plan: [facility]
--- NOTE | 2022-01-31 10:47 | NUR ---
SHIFT ASSESSMENT COMPLETED. ALERT AND ORIENTED X3, PATIENT UNAWARE OF DATE BUT KNOWS NAME, , AND LOCATION. DENIES PAIN UPON INITIAL ASSESSMENT, BUT STATES HE IS HAVING "A LITTLE PAIN" IN HIS NECK, WELL A HEADACHE. PER FAMILY, PATIENT HAS HAD AN INTERMITTENT HEADACHE SINCE HIS STRESS TEST. DENIES ANY OTHER NEEDS OR CONCERNS AT THIS TIME. WILL ADMINISTER PRN APAP FOR PAIN. CALL LIGHT WITHIN REACH, BED IN LOWEST LOCKED POSITION, FALL PRECAUTIONS IN PLACE. FAMILY AT BEDSIDE.
[2022-01-31 10:56] VITALS: BP 138/79; PULSE 71; TEMP 97.1
--- NOTE | 2022-01-31 11:48 | NUR ---
PATIENT DISCHARGED TO [facility]. REPORT GIVEN TO TRINA AT [facility]. MORNING MEDS AND FEEDING ADMINISTERED PRIOR TO DISCHARGE. ASSISTED INTO CLOTHES BY STUDENT PRIOR TO DC. IV TO LEFT AC REMOVED WITH CATH TIP INTACT, NO BLEEDING NOTED. FAMILY AT BEDSIDE. PEG TUBE DRESSING CHANGED PRIOR TO DC. FAMILY AND PATIENT DENY ANY QUESTIONS AT THIS TIME. ESCORTED OUT BY [facility].
--- NOTE | 2022-01-31 12:45 | NUR ---
Primary nurse was assisted with [id number] [facility] [employer] student Tierra Johnson and [employer] instructor Pushpa MATTHEWS RN
== END 2022-01-31 11:38 | DRG 177 ==
LOC: COL.ER 11:27 → MEDICAL 14:37
PROVIDERS: Internal Medicine; Nurse Practitioner; Nurse Practitioner Family; Physician Assistant; ADMIT Internal Medicine
DX: J69.0 Pneumonitis due to inhalation of food and vomit (principal); I50.23 Acute on chronic systolic (congestive) heart failure; E44.0 Moderate protein-calorie malnutrition; N17.9 Acute kidney failure, unspecified; I13.0 Hypertensive heart and chronic kidney disease with heart failure and stage 1 through stage 4 chronic kidney disease, or unspecified chronic kidney disease; I42.9 Cardiomyopathy, unspecified; E78.5 Hyperlipidemia, unspecified; G30.9 Alzheimer's disease, unspecified; F02.80 Dementia in other diseases classified elsewhere, unspecified severity, without behavioral disturbance, psychotic disturbance, mood disturbance, and anxiety; K21.9 Gastro-esophageal reflux disease without esophagitis; I95.1 Orthostatic hypotension; E86.0 Dehydration; Z20.822 Contact with and (suspected) exposure to COVID-19; N18.9 Chronic kidney disease, unspecified; D72.829 Elevated white blood cell count, unspecified; E03.9 Hypothyroidism, unspecified; Z90.89 Acquired absence of other organs; Z88.2 Allergy status to sulfonamides; Z88.8 Allergy status to other drugs, medicaments and biological substances; Z85.89 Personal history of malignant neoplasm of other organs and systems; Z92.3 Personal history of irradiation; Z79.82 Long term (current) use of aspirin; Z79.890 Hormone replacement therapy; Z87.891 Personal history of nicotine dependence; Z68.21 Body mass index [BMI] 21.0-21.9, adult; Z23 Encounter for immunization
CPT/HCPCS: A9500; C9113; J0456; J0696; J1650; J2405; J2543; J2785; J3370; J7030; J7050